=== PATIENT | male | born 1965 | race Hispanic/Latino ===

== ENCOUNTER → 2020-02-04 | Outpatient (CLI) | payer BC ==
--- NOTE | 2020-02-04 10:10 | Diagnostic Imaging Report ---
EXAM: Renal Ultrasound INDICATION: ^[id number] ^[id number] ^RENAL COLIC/RENTENTION OF URINE COMPARISON: None TECHNIQUE: Transverse and longitudinal images of the kidneys and bladder were obtained. FINDINGS: Right Kidney: Length: 10.9 cm Appearance: Normal echogenicity. Collecting system: Moderate hydronephrosis Stones: None Cyst/Mass: None Left Kidney: Length: 10.9 cm Appearance: Normal echogenicity. Collecting system: Severe hydronephrosis Stones: None Cyst/Mass: None Bladder: No mass or calculi. Bilateral ureteral jets visualized. Prevoid volume estimate of 798 cc. Postvoid images demonstrate post void volume estimate of 534 cc. The prostate measures 4.5 x 4.3 x 4.7 cm with volume estimate of 47 cc. IMPRESSION: Severe left and moderate right hydronephrosis. High post void residual bladder volume. Prostatomegaly. Signed by: Aspen Lin MD on 02/04/2020 10:07 AM
--- NOTE | 2020-02-04 10:15 | Diagnostic Imaging Report ---
EXAM: CT Abdomen and Pelvis WITHOUT intravenous contrast INDICATION: Urinary retention COMPARISON: Renal ultrasound of earlier the same day TECHNIQUE: Abdomen and pelvis were scanned utilizing a multidetector helical scanner from the lung base to the pubic symphysis without administration of IV contrast. Coronal and sagittal reformations were obtained. IV CONTRAST: None ORAL CONTRAST: Water COMPLICATIONS: None RADIATION DOSE: Total DLP: 315 mGy*cm Dose modulation, iterative reconstruction, and/or weight based adjustment of the mA/kV was utilized to reduce the radiation dose to as low as reasonably achievable. FINDINGS: LOWER THORAX: Normal. HEPATOBILIARY: No focal liver lesion. No biliary ductal dilation. Unremarkable gallbladder. SPLEEN: No splenomegaly. PANCREAS: No focal masses or ductal dilatation. ADRENALS: No adrenal nodules. KIDNEYS/URETERS: Severe bilateral hydronephrosis and hydroureter. No urinary calculi. PELVIC ORGANS/BLADDER: Very distended bladder. The prostate is enlarged. Prostate volumes provided on ultrasound. PERITONEUM / RETROPERITONEUM: No free air or fluid. LYMPH NODES: No lymphadenopathy. VESSELS: Unremarkable. GI TRACT: No abnormal bowel thickening. No bowel obstruction. BONES AND SOFT TISSUES: No acute osseous injury. No suspicious lytic or blastic lesions. IMPRESSION: Severe bilateral hydroureteronephrosis, bladder distention, and prostatomegaly, likely reflecting bladder outlet obstruction. Signed by: Aspen Lin MD on 02/04/2020 10:11 AM
== END ==
LOC: US 07:45
PROVIDERS: ATTEND Urology
DX: N23 Unspecified renal colic (principal); R33.9 Retention of urine, unspecified; N17.9 Acute kidney failure, unspecified
CPT/HCPCS: 74176; 76770

== ENCOUNTER 2020-04-01 05:15 | Inpatient (IN) | payer BC, OTHER ==
[2020-03-29 15:49] LABS: BASOPHILS % 0.4 % (0.0-1.0); EOSINOPHILS # (AUTO) 0.1 (0.0-0.4); EOSINOPHILS % 1.4 % (0.0-6.0); HEMATOCRIT 39.7 % (38.2-49.6); HEMOGLOBIN 13.2 g/dL (14.0-18.0); LYMPHOCYTES # (AUTO) 2.2 (1.0-3.2); LYMPHOCYTES % 26.8 % (18.0-39.1); MEAN CORPUSCULAR HEMOGLOBIN 28.3 pg (28-32); MEAN CORPUSCULAR HGB CONC 33.2 g/dL (31-35); MONOCYTES # (AUTO) 0.7 (0.2-0.8); MONOCYTES % 8.4 % (4.4-11.3); NEUTROPHILS % 62.6 % (38.7-80.0); PLATELET COUNT 247 x10e3/uL (140-360); RED BLOOD COUNT 4.67 x10e6/uL (4.3-5.7); RED CELL DISTRIBUTION WIDTH 12.5 % (11.7-14.4)
[~2020-04-01] VITALS: Ht 170.2 cm; Wt 76.2 kg
[~2020-04-01 05:15] MED LIST: FLOMAX0.4 MG PO
[2020-04-01] MEDS ORDERED: GENTAMICIN 80MG/NS 100 ML 200 ML IV ONE (05:59)
[2020-04-01] MEDS ORDERED: CEFTRIAXONE SOD 1 GM/NS 50 ML 50 ML IV ONE (05:59)
[2020-04-01] MEDS ORDERED: B&O 60MG R/S 60 MG SUPP PR ONE (06:47)
[2020-04-01] MEDS ORDERED: IOPAMIDOL 300MG/ML 50ML INFUS..BTL IV ONE (06:47)
[2020-04-01] MEDS ORDERED: ONDANSETRON HCL INJ 2MG/ML 2ML 2 MG/ML VIAL IV PRN (09:00)
[2020-04-01] MEDS ORDERED: DIPHENHYDRAMINE HCL 25 MG CAP PO PRN (09:00)
[2020-04-01] MEDS ORDERED: PHENAZOPYRIDINE HCL 100 MG TAB PO PRN (09:00)
[2020-04-01] MEDS ORDERED: B&O 60MG R/S 60 MG SUPP PR PRN (09:00)
[2020-04-01] MEDS ORDERED: ACETAMINOPHEN 1000 MG/100 ML IV PRN (09:00)
[2020-04-01 09:33] LABS: BASOPHILS % 0.2 % (0.0-1.0); EOSINOPHILS # (AUTO) 0.1 (0.0-0.4); EOSINOPHILS % 0.9 % (0.0-6.0); HEMATOCRIT 42.5 % (38.2-49.6); HEMOGLOBIN 14.1 g/dL (14.0-18.0); LYMPHOCYTES # (AUTO) 1.4 (1.0-3.2); LYMPHOCYTES % 15.6 % (18.0-39.1); MEAN CORPUSCULAR HEMOGLOBIN 28.2 pg (28-32); MEAN CORPUSCULAR HGB CONC 33.2 g/dL (31-35); MONOCYTES # (AUTO) 0.2 (0.2-0.8); MONOCYTES % 1.8 % (4.4-11.3); NEUTROPHILS # (AUTO) 7.4 (2.1-6.9); NEUTROPHILS % 80.9 % (38.7-80.0); PLATELET COUNT 245 x10e3/uL (140-360); RED CELL DISTRIBUTION WIDTH 12.6 % (11.7-14.4)
[2020-04-01] MEDS ORDERED: MEPERIDINE HCL INJ 25 MG/ML VIAL ONE (09:37)
[2020-04-01 09:49] LABS: CALCIUM 8.8 mg/dL (8.4-10.2); CREATININE, SERUM 1.63 mg/dL (0.72-1.25)
[2020-04-01] MEDS ORDERED: EYE LUBRICANT OPTH OINT 3.5GM TUBE OP ONE (11:10)
[2020-04-01] MEDS ORDERED: DEXAMETHASONE SOD PHOS INJ 4 MG/ML VIAL ONE (11:10)
[2020-04-01] MEDS ORDERED: ONDANSETRON HCL INJ 2MG/ML 2ML 2 MG/ML VIAL ONE (11:10)
[2020-04-01] MEDS ORDERED: LIDOCAINE HCL 2% LOCAL INJ 5 ML SDV VIAL INJ ONE (11:10)
[2020-04-01] MEDS ORDERED: PROPOFOL IV EMULSION 10 MG/ML 20 ML VIAL ONE (11:10)
[2020-04-01 11:30] VITALS: BP 151/78
[2020-04-01 12:35] VITALS: BP 131/76
[2020-04-01] MEDS: D5.45%NS/KCL 20MEQ 1,000 ML IV SCH ×2 (14:05→21:55)
[2020-04-01] MEDS: DOCUSATE SODIUM 100 MG CAP PO SCH ×2 (14:08→17:40)
[2020-04-01] MEDS: ACETAMINOPHEN/CODEINE 300MG - 30MG TAB PO PRN (14:08)
[2020-04-01 17:11] VITALS: BP 127/73
--- NOTE | 2020-04-01 19:20 | NUR ---
RECEIVED REPORT FROM DAY NURSE. PATIENT IS RESTING COMFORTABLY IN THE BED. BED IS IN THE LOWEST POSITION AND CALL LIGHT IS WITHIN REACH. WILL CONTINUE TO MONITOR PATIENT.
[2020-04-01] MEDS ORDERED: MIDAZOLAM HCL 2 MG/2 ML VIAL ONE (19:52)
[2020-04-01] MEDS ORDERED: FENTANYL CITRATE/PF 100MCG/2 ML INJ ONE (19:52)
[2020-04-01] MEDS ORDERED: KETAMINE HCL INJ 50 MG/ML 10 ML VIAL ONE (19:52)
[2020-04-01 20:00] VITALS: BP 116/70
[2020-04-02] VITALS (14 sets, daily range): BP systolic 111–142; BP diastolic 65–80
[2020-04-02] MEDS: D5.45%NS/KCL 20MEQ 1,000 ML IV SCH (03:30)
[2020-04-02 05:04] LABS: BASOPHILS % 0.2 % (0.0-1.0); EOSINOPHILS # (AUTO) 0.1 (0.0-0.4); EOSINOPHILS % 0.8 % (0.0-6.0); HEMATOCRIT 41.2 % (38.2-49.6); HEMOGLOBIN 13.5 g/dL (14.0-18.0); LYMPHOCYTES # (AUTO) 2.2 (1.0-3.2); LYMPHOCYTES % 16.7 % (18.0-39.1); MEAN CORPUSCULAR HEMOGLOBIN 27.8 pg (28-32); MEAN CORPUSCULAR HGB CONC 32.8 g/dL (31-35); MEAN CORPUSCULAR VOLUME 84.8 fL (81-99); MONOCYTES % 7.6 % (4.4-11.3); NEUTROPHILS # (AUTO) 9.8 (2.1-6.9); NEUTROPHILS % 74.3 % (38.7-80.0); PLATELET COUNT 230 x10e3/uL (140-360); RED BLOOD COUNT 4.86 x10e6/uL (4.3-5.7); RED CELL DISTRIBUTION WIDTH 12.6 % (11.7-14.4)
[2020-04-02] MEDS: ACETAMINOPHEN/CODEINE 300MG - 30MG TAB PO PRN (05:06)
[2020-04-02 05:14] LABS: ANION GAP 10.8 mmol/L (8-16); CALCIUM 7.9 mg/dL (8.4-10.2); CREATININE, SERUM 1.39 mg/dL (0.72-1.25); POTASSIUM 3.8 mmol/L (3.5-5.1)
[2020-04-02] MEDS ORDERED: CEFTRIAXONE SOD 1 GM/NS 50 ML 50 ML IV SCH (06:00)
--- NOTE | 2020-04-02 07:08 | NUR ---
report given to day nurse. patient is resting comfortably in the bed. bed is in the lowest position and call light is within reach.
[2020-04-02] MEDS: DOCUSATE SODIUM 100 MG CAP PO SCH ×2 (09:07→18:11)
[2020-04-02] MEDS ORDERED: CEFEPIME HCL 1 GM VIAL IV SCH (09:30)
--- NOTE | 2020-04-02 09:50 | NUR ---
Pt unavailable at this time. Pt on phone. I will follow up as able. [facility] O: [phone]
[2020-04-02] MEDS ORDERED: TAMSULOSIN HCL 0.4 MG CAP PO SCH (10:30)
[2020-04-02] MEDS ORDERED: CEFEPIME 1GM/NS 0.9% 50 ML 50 ML IV SCH (10:30)
--- NOTE | 2020-04-02 16:10 | History and Physical ---
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 REASON FOR ADMISSION: Status post TURP. Gross hematuria. Continuous urinary bladder irrigation. HISTORY OF PRESENT ILLNESS: The patient is a 54 years male with increase in urinary retention, recurrent prostatitis, urinary tract infection and gross hematuria. He is now status post TURP. The patient is otherwise stable. He is getting continuous irrigation. The patient had no chest pain or shortness of breath. PAST MEDICAL HISTORY: Enlarged prostate. PAST SURGICAL HISTORY: Status post TURP. SOCIAL HISTORY: The patient does not smoke or use alcohol. No regular drug. ALLERGIES: TO NO KNOWN ALLERGIES. HOME MEDICATIONS: Flomax. PHYSICAL EXAMINATION: VITAL SIGNS: Temperature is 98, blood pressure 124/70, pulse rate is 63, respirations 18. GENERAL: The patient is not in acute distress. HEENT: Normocephalic and atraumatic. Anicteric. NECK: Supple grossly. PULMONARY: Diminished breath sounds. CARDIOVASCULAR: S1, S2. Regular rate and rhythm. ABDOMEN: Soft. Jimenez catheter in place. Continuous urinary bladder irrigation. EXTREMITIES: No cyanosis or edema. NEUROLOGIC: No focal deficit. LABORATORY DATA: Sodium is 138, potassium 3.8, chloride 106, bicarb 25, BUN 20, creatinine 1.3, glucose 109. WBC 13.2, hemoglobin 13.5, hematocrit 41.2, and platelets is 230,000. IMPRESSION: 1. Status post TURP. 2. Baseline enlarged prostate hematuria and recurrent urinary tract infection with prostatitis. PLAN: Continue with current management. Antibiotics. IV fluids. Repeat lab work. Resume home medication. We will monitor the patient closely. MD FRANCISCA Tafoya/CAITLIN /[id number]
--- NOTE | 2020-04-02 16:20 | NUR ---
moscoso removed. Family and patient instructed on serial urines
[2020-04-02] MEDS ORDERED: LEVOFLOXACIN250 MG PO (18:36)
[2020-04-02] MEDS ORDERED: TYLENOL WITH C1 EACH PO (18:38)
--- NOTE | 2020-05-10 04:41 | Operative Report ---
DATE OF PROCEDURE: 04/01/2020 SURGEON: Jack Carmona MD PREOPERATIVE DIAGNOSES: 1. Obstructive benign prostatic hypertrophy. 2. Gross hematuria. 3. Urinary tract infections. POSTOPERATIVE DIAGNOSES: 1. Obstructive benign prostatic hypertrophy. 2. Gross hematuria. 3. Urinary tract infections. OPERATIONS PERFORMED: 1. Cystourethroscopy with bilateral ureteral catheterization and retrograde ureteropyelography (separate procedure was performed for the hematuria and urinary tract infections). 2. Interpretation of retrograde ureteropyelography. 3. Supervision of fluoroscopy, no radiologist present. 4. Cystourethroscopy with transurethral resection of the prostate utilizing plasma button electrode. ANESTHESIA: General. COMPLICATIONS: None. CLINICAL SUMMARY: Jesús Sears is a 54-year-old man who had the above preoperative diagnosis. He has obstructive BPH. He is brought for management. He is aware of the risks of bleeding, infection, injury to adjacent structures, need for additional procedures and elected to proceed. OPERATIVE PROCEDURE IN DETAIL: Informed consent was verified. Jesús Sears was properly identified, taken to the operating room, placed on the cystoscopy table in supine position. Anesthesia was uneventfully begun. The patient was then carefully gently repositioned in the dorsal lithotomy position with all pressure points well padded. His genitalia were prepared and draped in the usual sterile fashion. The cystoscope sheath with the visual obturator in place was atraumatically inserted into the patient's urethra. It was guided down the unremarkable distal urethra past the bulbar and sphincteric region, which was erythematous from the patient's chronic Jimenez catheter. We went through the prostate bed, which was significant for trilobar prostatic hypertrophy with visually obstructing BPH. We entered the patient's bladder where there were grade 2 trabeculations, but no tumors, no stones, no diverticula. No suspicious mucosal lesions were identified. An 8-Georgian catheter was used to cannulate each ureter and retrograde ureteral pyelograms were performed. Interpretation of retrograde ureteropyelography contrast was instilled in retrograde fashion bilaterally. There was bilateral hydroureteronephrosis. There was J hooking noted bilaterally, but there were no suspicious lesions, there were no tumors, there were no stones. Unobstructed drainage was observed fluoroscopically. The resectoscope was then atraumatically introduced and we utilized the plasma button electrode. First, we vaporized the median lobe. Then, we worked on both lateral lobes from the bladder neck to maneuver past the verumontanum and down to the surgical capsule. Pinpoint electrocautery was utilized to achieve hemostasis. The resectoscope was withdrawn. A Jimenez catheter was placed. It was irrigated to and fro to ensure it worked properly. It was placed in continuous bladder irrigation. The patient was uneventfully reversed from anesthesia and taken to recovery room in stable condition. There were no complications to the procedure. He tolerated the procedure well. PLANS: Plans will be to proceed with routine postoperative care and, of course, ongoing urological followup. We hope the patient will be able to void well following this procedure. MD JOHN Crowley/CAITLIN /[id number]
== END 2020-04-02 19:12 | disposition home or self-care (01) | DRG 713 ==
LOC: OR 05:15 → PACU V 09:05 → MED/SURG 10:40
PROVIDERS: ADMIT Urology; ATTEND Urology
PROC: 0V508ZZ Destruction of Prostate, Via Natural or Artificial Opening Endoscopic (ICD-10-PCS; principal; 2020-04-01 07:00)
PROC: BT141ZZ Fluoroscopy of Kidneys, Ureters and Bladder using Low Osmolar Contrast (ICD-10-PCS; 2020-04-01 07:00)
DX: N40.1 Benign prostatic hyperplasia with lower urinary tract symptoms (principal); N39.0 Urinary tract infection, site not specified; R33.8 Other retention of urine; R39.14 Feeling of incomplete bladder emptying; R35.1 Nocturia; R31.0 Gross hematuria; N18.9 Chronic kidney disease, unspecified; Z87.440 Personal history of urinary (tract) infections; Z87.898 Personal history of other specified conditions; Z11.59 Encounter for screening for other viral diseases; N41.9 Inflammatory disease of prostate, unspecified
CPT/HCPCS: 36415; 51700; 74420; 80048; 83735; 85025; 93005; C1758; J0692; J0696; J1100; J1580; J2001; J2175; J2250; J2405; J3010; U0002

== ENCOUNTER → 2020-05-07 | Outpatient (CLI) | payer BC ==
[~2020-05-07] MED LIST changes: +LEVOFLOXACIN250 MG PO; +TYLENOL WITH C1 EACH PO
--- NOTE | 2020-05-07 17:00 | Diagnostic Imaging Report ---
EXAM: Renal Ultrasound INDICATION: Hydronephrosis COMPARISON: Abdomen and pelvis CT of 02/04/2020, renal ultrasound 02/04/2020 TECHNIQUE: Transverse and longitudinal images of the kidneys and bladder were obtained. FINDINGS: Right Kidney: Length: 10.3 cm Appearance: Normal echogenicity. Collecting system: Minimal hydronephrosis Stones: None Cyst/Mass: None Left Kidney: Length: 10.0 cm Appearance: Normal echogenicity. Collecting system: Minimal hydronephrosis Stones: None Cyst/Mass: None Bladder: No mass or calculi. Bilateral ureteral jets visualized. Mild diffuse bladder wall thickening. Prevoid volume estimate of 540 cc. Postvoid images demonstrate incomplete emptying with post void residual of 58 cc. IMPRESSION: Minimal right and left hydronephrosis. Mild diffuse bladder wall thickening. Pre and post void bladder volumes as above. Signed by: Aspen Lin MD on 05/07/2020 4:57 PM
== END ==
LOC: US 16:21
PROVIDERS: ATTEND Urology
DX: N13.30 Unspecified hydronephrosis (principal)
CPT/HCPCS: 76770; 76857

== ENCOUNTER → 2020-07-02 | Outpatient (CLI) | payer BC ==
[~2020-07-02] MED LIST changes: +FUROSEMIDE INJ 10 MG/ML 4 ML VIAL ONE
--- NOTE | 2020-07-02 17:57 | Diagnostic Imaging Report ---
Renal Scan with Lasix Washout Reason for exam: Hydronephrosis, unspecified Technique: Following intravenous administration of 10 mCi of Tc-99m MAG3, dynamic images of the kidneys in the posterior projection were obtained through 40 minutes. Lasix 40 mg was administered intravenously at 10 minutes post injection of the tracer. Report: Left kidney: Perfusion of the left kidney is prompt. The kidney has a distorted reniform shape with overall reduced size and thinned renal cortex. Extraction of tracer from the blood pool by the remaining renal parenchyma is prolonged. Clearance of tracer from the renal parenchyma is prolonged by is nearly complete by the end of the study. The pelvicalyceal system does not appear dilated even thought the renal cortex is thinned. No increased pooling of tracer is seen within the pelvicalyceal system. No net drainage of tracer from the pelvicalyceal system is seen prior to administration of Lasix. Washout of tracer from the pelvicalyceal system following administration of Lasix is rapid with a T-1/2 of 4-5 minutes (normal less than 15 minutes). No significant stasis of tracer is seen within the left ureter. Right kidney: Perfusion to the right kidney is prompt. The right kidney has mildly distorted reniform shape with overall reduction in size. The right kidney is larger than the left kidney. Extraction of tracer from the blood pool by the renal parenchyma is normal. Clearance of tracer from the renal parenchyma is prompt. The pelvicalyceal system is not dilated. Physiologic pooling of tracer is seen within the pelvicalyceal system. Some drainage of tracer from the pelvicalyceal system is seen prior to administration of Lasix. Washout of tracer from the pelvicalyceal system following administration of Lasix is rapid with a T-1/2 of 5 minutes (normal less than 15 minutes). No significant stasis of tracer is seen within the right ureter. Differential renal function: The left kidney contributes 26% of total renal function and the right kidney contributes 74% (normal 43-57%). Impression: 1. Loss of renal parenchyma accounts for the decreased differential function of 26%. Some tubular cell dysfunction is present evidenced by the prolonged extraction and excretion. No hydronephrosis is present. No physiologically significant obstruction of the renal collecting system is present. 2. Some loss of renal parenchyma evidenced by overall reduced in the size of the kidney. The function of the right kidney is generally normal. No hydronephrosis is present. No physiologically significant obstruction of the renal collecting system is present. Signed by: Dr. Miguelina Hope M.D. on 07/02/2020 5:54 PM
== END ==
LOC: NM 09:06
PROVIDERS: ATTEND Urology
DX: N13.30 Unspecified hydronephrosis (principal)
CPT/HCPCS: 78708; A9562; J1940